=== PATIENT | male | born 1980 | race Caucasian/White ===

== ENCOUNTER 2017-05-05 00:49 | Emergency (ER) | payer SELFPAY ==
[~2017-05-05] VITALS: Ht 188 cm; Wt 80.4 kg
[~2017-05-05 00:49] MED LIST: AMOXICILLIN500 MG PO; MOTRIN800 MG PO; NORCO 5/3251 TABLET PO
[2017-05-05] MEDS ORDERED: NAPROSYN500 MG PO (02:22)
[2017-05-05] MEDS ORDERED: PEN-VEE K,VEET500 MG PO (02:22)
[2017-05-05 02:37] VITALS: BP 126/84
== END 2017-05-05 02:37 | disposition home or self-care (01) ==
LOC: EME 00:49
DX: K04.7 Periapical abscess without sinus (principal); K02.9 Dental caries, unspecified; F17.200 Nicotine dependence, unspecified, uncomplicated
CPT/HCPCS: 99281; 99283